=== PATIENT | male | born 2000 | race Caucasian/White ===

== ENCOUNTER 2025-03-18 12:20 | Emergency (ER) | payer BC ==
[2025-03-18] MEDS: Ondansetron 4 MG/2 ML SDV IVPUSH STA (12:32)
[2025-03-18 12:41] LABS: BASOPHILS ABSOLUTE AUTO 0.04 10^3/uL (0.00-0.50); BASOPHILS PERCENT AUTO 0.3 % (0-1); EOSINOPHILS ABSOLUTE AUTO 0.01 10^3/uL (0.00-1.50); EOSINOPHILS PERCENT AUTO 0.1 % (0-6); IMMATURE GRAN ABSOLUTE AUTO 0.01 10^3/uL (0.00-0.49); IMMATURE GRAN PERCENT AUTO 0.1 % (0.0-4.9); LYMPHOCYTES ABSOLUTE AUTO 1.21 10^3/uL (0.60-5.00); LYMPHOCYTES PERCENT AUTO 9.4 % (24-44); MONOCYTES ABSOLUTE AUTO 0.53 10^3/uL (0.00-1.50); MONOCYTES PERCENT AUTO 4.1 % (0-10); NEUTROPHILS ABSOLUTE AUTO 11.02 x10^3/uL (1.80-8.00); NEUTROPHILS PERCENT AUTO 86.0 % (41-71); PLATELET COUNT,PLT 268 10^3/uL (150-400); RED BLOOD CELL COUNT 4.74 x10^6/uL (4.50-6.00); WHITE BLOOD CELL COUNT,WBC 12.8 10^3/uL (4.0-11.0)
[2025-03-18 12:53] LABS: ALANINE AMINOTRANSFERASE,ALT 30 U/L (12-78); ASPARTATE AMNIOTRANSFERASE,AST 25 U/L (15-37); BILIRUBIN TOTAL 0.7 mg/dL (0.0-1.0); BLOOD UREA NITROGEN,BUN 18 mg/dL (7-18); CARBON DIOXIDE,CO2 20 mmol/L (21-32); CHLORIDE,CL 104 mEq/L (98-106); CREATININE 1.0 mg/dL (0.7-1.3); EST CRCL DRUG DOSING (CG) 96.64 mL/min; ESTIMATED GFR 109 mL/min (>=60); ETHANOL BLOOD MEDICAL 68 mg/dL (0-3); GLUCOSE RANDOM 123 mg/dL (75-99); POTASSIUM,K 3.6 mEq/L (3.5-5.0); PROTEIN TOTAL,TP 8.0 g/dL (6.4-8.2); SODIUM,NA 143 mEq/L (136-145)
[2025-03-18 13:22] LABS: AMPHETAMINES,URINE NEGATIVE (NEGATIVE); APPEARANCE,URINE CLEAR (CLEAR); BARBITURATES,URINE NEGATIVE (NEGATIVE); GLUCOSE,URINE NEGATIVE (NEGATIVE); MDMA (ECSTASY), URINE NEGATIVE (NEGATIVE); METHAMPHETAMINES,URINE NEGATIVE (NEGATIVE); OCCULT BLOOD,URINE NEGATIVE (NEGATIVE); OPIATES,URINE NEGATIVE (NEGATIVE); OXYCODONE,URINE NEGATIVE (NEGATIVE); PHENCYCLIDINE,URINE NEGATIVE (NEGATIVE); TCA,URINE NEGATIVE (NEGATIVE)
[2025-03-18] MEDS: Promethazine 25 MG/ML SDV IM ONE (13:36)
[2025-03-18] MEDS: Iopamidol 755 Mg/ML 100 ML Bottle IVPUSH ONE (13:42)
== END 2025-03-18 15:07 | disposition home or self-care (01) ==
LOC: CC.ED 12:20
DX: F10.129 Alcohol abuse with intoxication, unspecified (principal); F17.200 Nicotine dependence, unspecified, uncomplicated; Z79.899 Other long term (current) drug therapy
CPT/HCPCS: 36415; 74177; 80053; 80305-QW; 80307; 81001; 83690; 85025; 86140; 96361; 96372; 96374; 99284; 99285-25; J2405; J2550; J7030; Q9967